=== PATIENT | female | born 1955 | race Caucasian/White ===

== ENCOUNTER → 2017-06-02 | Outpatient (CLI) | payer OTHER ==
[~2017-06-02] MED LIST: CIPRO 500MG TA500 MG PO; CLARITIN 1010 MG/TAB PO; DOXYCYCLINE 10100 MG PO; FLONASEALLERGY NS; LEVAQUIN 5500 MG/TA1 PO; LEVAQUIN 750MG750 M1 PO; MUCINEX 60600 MG/TA1 PO; PREDNISONE20 MG PO; TESSALON PERLE200 MG PO; XOPENEX HF0.045 MG/A IH; ZITHROMAX 250M250 MG PO; ZYRTEC 10MG10 MG PO
== END ==
LOC: MC.RAD 14:40
DX: Z12.31 Encounter for screening mammogram for malignant neoplasm of breast (principal)

== ENCOUNTER → 2019-09-19 | Outpatient (CLI) | payer OTHER | LOC: MC.RAD 08:39 | DX: Z12.31 Encounter for screening mammogram for malignant neoplasm of breast (principal) ==